=== PATIENT | female | born 1965 | race Caucasian/White ===

== ENCOUNTER 2019-04-07 16:50 | Emergency (ER) | payer MEDICAID ==
[~2019-04-07] VITALS: Ht 177.8 cm; Wt 65.8 kg
--- NOTE | 2019-04-07 17:05 | NUR ---
ERMD at bedside for MSE
[2019-04-07 17:25] LABS: BASOPHILS % (AUTO) 0.9 % (0.0-2.0); EOSINOPHILS # (AUTO) 0.1 K/uL (0.0-0.7); EOSINOPHILS % (AUTO) 1.5 % (0.0-7.0); HEMOGLOBIN 13.9 g/dL (10.9-14.3); LYMPHOCYTES # (AUTO) 1.8 K/uL (20.0-40.0); LYMPHOCYTES % (AUTO) 32.5 % (20.5-51.5); MEAN CORPUSCULAR HEMOGLOBIN 28.4 uug (24.7-32.8); MEAN CORPUSCULAR HGB CONC 33 g/dL (32.3-35.6); MEAN CORPUSCULAR VOLUME 85.4 fL (75.5-95.3); MONOCYTES # (AUTO) 0.5 K/uL (2.0-10.0); MONOCYTES % (AUTO) 8.5 % (0.0-11.0); NEUTROPHILS # (AUTO) 3.1 K/uL (1.8-8.9); NEUTROPHILS % (AUTO) 56.6 % (38.5-71.5); PLATELET COUNT (AUTO) 249 K/uL (179-408); RED BLOOD CELL COUNT(AUTO) 4.91 MIL/uL (3.63-4.92); WHITE BLOOD COUNT (AUTO) 5.5 K/uL (3.8-11.8)
[2019-04-07 17:37] LABS: CREATININE 0.7 mg/dL (0.6-1.3); POTASSIUM 3.8 mmol/L (3.5-5.1)
[2019-04-07 17:49] LABS: BILIRUBIN,DIRECT 0.1 mg/dL (0.0-0.2); BILIRUBIN,TOTAL 0.2 mg/dL (0.2-1.0); TOTAL PROTEIN, SERUM 7.1 g/dL (6.4-8.2)
--- NOTE | 2019-04-07 18:17 | NUR ---
Patient discharged to home in stable conditon. Written and verbal after care instructions given. Patient verbalizes understanding of instructions. Patient ambulated with stable gait.
[2019-04-07 18:21] VITALS: BP 129/91
== END 2019-04-07 18:22 | disposition home or self-care (01) ==
LOC: ER 16:50
DX: J20.9 Acute bronchitis, unspecified (principal); J44.9 Chronic obstructive pulmonary disease, unspecified; F17.200 Nicotine dependence, unspecified, uncomplicated
CPT/HCPCS: 36415; 70030-TC; 71045; 85025; 93005; A4663

== ENCOUNTER 2019-06-24 18:59 | Emergency (ER) | payer MEDICAID ==
[~2019-06-24] VITALS: Ht 177.8 cm; Wt 66.7 kg
[2019-06-24 19:58] LABS: BASOPHILS # (AUTO) 0.1 K/uL (0.0-8.0); BASOPHILS % (AUTO) 0.7 % (0.0-2.0); EOSINOPHILS % (AUTO) 0.5 % (0.0-7.0); HEMATOCRIT 39.9 % (31.2-41.9); HEMOGLOBIN 13.8 g/dL (10.9-14.3); LYMPHOCYTES # (AUTO) 1.5 K/uL (20.0-40.0); LYMPHOCYTES % (AUTO) 17.1 % (20.5-51.5); MEAN CORPUSCULAR HEMOGLOBIN 28.5 uug (24.7-32.8); MEAN CORPUSCULAR HGB CONC 35 g/dL (32.3-35.6); MEAN CORPUSCULAR VOLUME 82.6 fL (75.5-95.3); MONOCYTES # (AUTO) 0.9 K/uL (2.0-10.0); MONOCYTES % (AUTO) 10.3 % (0.0-11.0); NEUTROPHILS # (AUTO) 6.4 K/uL (1.8-8.9); NEUTROPHILS % (AUTO) 71.4 % (38.5-71.5); PLATELET COUNT (AUTO) 242 K/uL (179-408); RED BLOOD CELL COUNT(AUTO) 4.83 MIL/uL (3.63-4.92); WHITE BLOOD COUNT (AUTO) 8.9 K/uL (3.8-11.8)
[2019-06-24] MEDS ORDERED: KETOROLAC TROMETHAMINE 30 MG INJ IVP ONE (20:00)
[2019-06-24 20:02] LABS: *BILIRUBIN,URIN NEGATIVE (NEGATIVE); *BLOOD, URINE 1+ (NEGATIVE); *CLARITY,URINE CLOUDY (CLEAR); *COLOR,URINE YELLOW (YELLOW); *KETONES,URINE NEGATIVE (NEGATIVE); *UROBILINOGEN,URINE 0.2 E.U./dl (NORMAL); LEUKOCYTE ESTERASE ,URINE 2+ (NEGATIVE); NITRITE, URINE NEGATIVE (NEGATIVE); UGLUCOSE NEGATIVE (NEGATIVE)
[2019-06-24 20:12] LABS: BACTERIA,URINE 2+ /HPF (NONE SEEN); WBC,URINE 50-80 /HPF (0-3)
[2019-06-24 20:14] LABS: CREATININE 0.8 mg/dL (0.6-1.3)
[2019-06-24 20:19] LABS: BILIRUBIN,TOTAL 0.5 mg/dL (0.2-1.0); TOTAL PROTEIN, SERUM 7.4 g/dL (6.4-8.2)
[2019-06-24 20:20] LABS: BILIRUBIN,DIRECT 0.1 mg/dL (0.0-0.2)
[2019-06-24] MEDS ORDERED: KETOROLAC TROMETHAMINE 30 MG INJ ONE (20:22)
[2019-06-24] MEDS ORDERED: CEFTRIAXONE 1 G VIAL ONE (20:26)
[2019-06-24] MEDS ORDERED: CEFTRIAXONE 2 G in IV DEXTROSE 5% 100 ML IV ONE (20:30)
--- NOTE | 2019-06-24 20:58 | NUR ---
Patient discharged to home in stable conditon. Written and verbal after care instructions given. Patient verbalizes understanding of instructions.
--- NOTE | 2019-06-24 20:58 | NUR ---
IV removed. Catheter intact and site benign. Pressure and 4x4 gauze applied to site. No bleeding noted.
[2019-06-24 20:59] VITALS: BP 122/77
== END 2019-06-24 21:00 | disposition home or self-care (01) ==
LOC: ER 19:00
DX: N12 Tubulo-interstitial nephritis, not specified as acute or chronic (principal); R30.0 Dysuria
CPT/HCPCS: 36415; 80048; 80076; 81000; 81001; 83605; 83690; 85025; 87040 ×2; 87077; 87086; 87186; 96372; 99283; J0696; J1885; J7060; A4663

== ENCOUNTER 2020-01-21 07:36 | Emergency (ER) | payer MEDICAID ==
[~2020-01-21] VITALS: Ht 177.8 cm; Wt 66.7 kg
--- NOTE | 2020-01-21 07:51 | NUR ---
at bedside to examine patient.
--- NOTE | 2020-01-21 08:23 | NUR ---
dcd instructions and prescription given to pt. who verbalized understanding. pt. left room aaox4. vitals stable steady gait.
== END 2020-01-21 08:24 | disposition home or self-care (01) ==
LOC: ER 07:36
DX: N76.4 Abscess of vulva (principal); J44.9 Chronic obstructive pulmonary disease, unspecified; Z87.01 Personal history of pneumonia (recurrent); S31.4 Open wound of vagina and vulva; W26.8XXS Contact with other sharp object(s), not elsewhere classified, sequela
CPT/HCPCS: A4663

== ENCOUNTER 2020-02-03 08:48 | Emergency (ER) | payer MEDICAID ==
[~2020-02-03] VITALS: Ht 177.8 cm; Wt 68.9 kg
--- NOTE | 2020-02-03 09:15 | NUR ---
Dr Phan at the bedside for MSE.
[2020-02-03 09:37] VITALS: BP 119/77
== END 2020-02-03 09:38 | disposition home or self-care (01) ==
LOC: ER 08:48
DX: K08.89 Other specified disorders of teeth and supporting structures (principal); F41.9 Anxiety disorder, unspecified; J44.9 Chronic obstructive pulmonary disease, unspecified
CPT/HCPCS: A4663

== ENCOUNTER 2020-07-25 01:18 | Emergency (ER) | payer MEDICAID, OTHER ==
[~2020-07-25] VITALS: Ht 177.8 cm; Wt 69.9 kg
--- NOTE | 2020-07-25 01:20 | NUR ---
54 y/o female presents with right sided flank pain. Given a cup for urine sample upon arrival. Hx of UTIs. A&Ox4. No SI/HI. Steady gait. Well kept appearance. No chest pain, no palpitations, no diaphoresis, no chills. Sinus Tachycardia on monitor (low 100s). No SOB, sats >94% on room air. Lungs clear bilaterally. GI/ non-remarkable other than the chief complaint of right sided flank pain + dysuria. No N/V/D.
[2020-07-25 01:28] LABS: *BILIRUBIN,URIN NEGATIVE (NEGATIVE); *BLOOD, URINE TRACE (NEGATIVE); *COLOR,URINE YELLOW (YELLOW); *KETONES,URINE NEGATIVE (NEGATIVE); *UROBILINOGEN,URINE 0.2 E.U./dl (NORMAL); LEUKOCYTE ESTERASE ,URINE NEGATIVE (NEGATIVE); NITRITE, URINE POSITIVE (NEGATIVE); UGLUCOSE NEGATIVE (NEGATIVE)
[2020-07-25 01:29] LABS: *CLARITY,URINE HAZY (CLEAR)
[2020-07-25 01:35] LABS: BACTERIA,URINE MANY /HPF (NONE SEEN); RBC,URINE 0-3 /HPF (0-3); SQUAMOUS EPITHELIAL CELL,UR FEW /HPF (NONE SEEN)
--- NOTE | 2020-07-25 01:36 | NUR ---
Dr. Delgado at bedside for MSE
[2020-07-25 01:43] VITALS: BP 122/81
[2020-07-25] MEDS ORDERED: SULFAMETH/TRIMETH 800/160 MG TABLET PO ONE (01:45)
[2020-07-25] MEDS ORDERED: SULFAMETH/TRIMETH 800/160 MG TABLET ONE (01:47)
--- NOTE | 2020-07-25 01:50 | NUR ---
Patient discharged to home in stable condition. Written and verbal after care instructions given. Patient verbalizes understanding of instructions. Stressed follow up or return to ER for worsening s/s. Belongings with patient. Medication education verbally given. Steady gait. Vital signs stable.
== END 2020-07-25 01:51 | disposition home or self-care (01) ==
LOC: ER 01:20
DX: N39.0 Urinary tract infection, site not specified (principal); J44.9 Chronic obstructive pulmonary disease, unspecified; Z87.01 Personal history of pneumonia (recurrent)
CPT/HCPCS: 87077; 87086; A4663

== ENCOUNTER 2020-09-24 05:42 | Emergency (ER) | payer OTHER ==
[~2020-09-24] VITALS: Ht 177.8 cm; Wt 68.9 kg
--- NOTE | 2020-09-24 07:18 | NUR ---
Recieved patient in shift report, X-ray tech note at bedside
[2020-09-24] MEDS ORDERED: KETOROLAC TROMETHAMINE 15 MG INJ IM ONE (08:00)
[2020-09-24] MEDS ORDERED: KETOROLAC TROMETHAMINE 15 MG INJ ONE (08:00)
[2020-09-24] MEDS ORDERED: IBUP-1955 PO (08:02)
--- NOTE | 2020-09-24 08:36 | NUR ---
Patient discharged to home in stable condition. KELVIN wrap applied to left ankle, patient given crutches and instructed on the proper use of crutches. Patient able to ambulate to car, no signs of acute distress noted. Written and verbal after care instructions given. Patient verbalizes understanding of instructions. Stressed follow up or return to ER for worsening s/s.
[2020-09-24 08:39] VITALS: BP 122/76
== END 2020-09-24 08:40 | disposition home or self-care (01) ==
LOC: ER 05:52
DX: S93.402A Sprain of unspecified ligament of left ankle, initial encounter (principal); W18.49XA Other slipping, tripping and stumbling without falling, initial encounter; Y92.89 Other specified places as the place of occurrence of the external cause; J44.9 Chronic obstructive pulmonary disease, unspecified; F17.200 Nicotine dependence, unspecified, uncomplicated
CPT/HCPCS: 73610; 73630; 96372; 99284; J1885; A4663

== ENCOUNTER 2021-09-06 00:31 | Emergency (ER) | payer OTHER ==
[~2021-09-06] VITALS: Ht 177.8 cm; Wt 64.4 kg
[~2021-09-06 00:31] MED LIST: IBUP-1955 PO
--- NOTE | 2021-09-06 00:46 | NUR ---
pt in room 4a says has sore throat for 2 days and has difficulty swallowing.
--- NOTE | 2021-09-06 01:06 | NUR ---
Dr. Soria in room for RITA.
[2021-09-06] MEDS ORDERED: OXYCODONE/APAP 5-325 MG TABLET ONE (01:24)
[2021-09-06] MEDS ORDERED: OXYCODONE/APAP 5-325 MG TABLET PO ONE (01:30)
[2021-09-06 01:37] LABS: HEMATOCRIT 39.5 % (31.2-41.9); MEAN CORPUSCULAR HEMOGLOBIN 28.7 uug (24.7-32.8); MEAN CORPUSCULAR VOLUME 83.1 fL (75.5-95.3); PLATELET COUNT (AUTO) 240 K/uL (179-408)
[2021-09-06 01:40] LABS: MAGNESIUM 1.9 mg/dL (1.8-2.4)
[2021-09-06 02:05] LABS: THYROID STIMULATING HORMONE 0.928 mIU/mL (0.358-3.740)
[2021-09-06] MEDS ORDERED: FENTANYL CITRATE 100 MCG/2 ML AMPUL IV ONE (02:30)
[2021-09-06] MEDS ORDERED: PROPOFOL 200 MG/20 ML BOTTLE IV ONE ×2 (02:30→03:00)
[2021-09-06] MEDS ORDERED: FENTANYL CITRATE 100 MCG/2 ML AMPUL ONE (02:40)
[2021-09-06] MEDS ORDERED: PROPOFOL 100 ML ONE (02:40)
[2021-09-06] MEDS ORDERED: OXYC-128 PO (03:14)
--- NOTE | 2021-09-06 03:18 | NUR ---
DR. Soria at bedside speaking with the pt.
[2021-09-06 03:48] VITALS: BP 132/85
--- NOTE | 2021-09-06 03:48 | NUR ---
Patient discharged to home in stable condition. Written and verbal after care instructions given. Patient verbalizes understanding of instructions. Stressed follow up or return to ER for worsening s/s.
== END 2021-09-06 03:48 | disposition home or self-care (01) ==
LOC: ER 00:36
DX: R13.10 Dysphagia, unspecified (principal); J44.9 Chronic obstructive pulmonary disease, unspecified; F17.210 Nicotine dependence, cigarettes, uncomplicated
CPT/HCPCS: 31525; 36415; 83735; 84443; 85025; 96374; 99285; J3010; J7040; A4663; J3490

== ENCOUNTER 2021-11-20 21:17 | Emergency (ER) | payer OTHER ==
[~2021-11-20] VITALS: Ht 177.8 cm; Wt 67.1 kg
[~2021-11-20 21:17] MED LIST changes: +OXYC-128 PO
[2021-11-20] MEDS ORDERED: ACETAMINOPHEN ES 500 MG TABLET PO ONE (22:30)
[2021-11-20] MEDS ORDERED: ACETAMINOPHEN ES 500 MG TABLET ONE (22:34)
--- NOTE | 2021-11-20 22:47 | NUR ---
Tylenol administered as ordered. PT is shivering. Pt offered warm blanket on request.will repeat temp in 1 hour.
[2021-11-20] MEDS ORDERED: IV NORMAL SALINE 1000 ML BAG IV ONE (23:45)
[2021-11-21 00:21] LABS: HEMATOCRIT 38.5 % (31.2-41.9); MEAN CORPUSCULAR HEMOGLOBIN 28.7 uug (24.7-32.8); PLATELET COUNT (AUTO) 207 K/uL (179-408)
[2021-11-21 00:24] LABS: CARBON DIOXIDE 28 mmol/L (21-32); CHLORIDE 99 mmol/L (98-107); CREATININE 0.8 mg/dL (0.6-1.3); GLUCOSE 124 mg/dL (74-106); POTASSIUM 3.9 mmol/L (3.5-5.1); UREA NITROGEN, BLOOD 7 mg/dL (7-18)
[2021-11-21 00:29] LABS: *BILIRUBIN,URIN NEGATIVE (NEGATIVE); *BLOOD, URINE 1+ (NEGATIVE); *COLOR,URINE YELLOW (YELLOW); *KETONES,URINE NEGATIVE (NEGATIVE); *UROBILINOGEN,URINE 0.2 E.U./dl (NORMAL); LEUKOCYTE ESTERASE ,URINE 1+ (NEGATIVE); NITRITE, URINE NEGATIVE (NEGATIVE); UGLUCOSE NEGATIVE (NEGATIVE)
[2021-11-21 00:34] LABS: *CLARITY,URINE HAZY (CLEAR)
[2021-11-21 00:35] LABS: ALANINE AMINOTRANSFERASE 25 U/L (14-59); ALKALINE PHOSPHATASE 100 U/L (50-136); ASPARTATE AMINOTRANSFERASE 31 U/L (15-37); BILIRUBIN,DIRECT 0.1 mg/dL (0.0-0.2); BILIRUBIN,TOTAL 0.5 mg/dL (0.2-1.0); LIPASE 66 U/L (73-393)
[2021-11-21 00:38] LABS: BACTERIA,URINE MANY /HPF (NONE SEEN); SQUAMOUS EPITHELIAL CELL,UR MODERATE /HPF (NONE SEEN); WBC,URINE 20-50 /HPF (0-3)
--- NOTE | 2021-11-21 01:06 | NUR ---
temp repeated and is 98.2.
[2021-11-21] MEDS ORDERED: CEFTRIAXONE 1 G in IV DEXTROSE 5% 50 ML IV ONE (01:45)
[2021-11-21] MEDS ORDERED: NITR100C11 PO (01:49)
[2021-11-21] MEDS ORDERED: CEPH500C2 PO (01:49)
[2021-11-21] MEDS ORDERED: CEFTRIAXONE 1 G VIAL ONE (01:51)
[2021-11-21 03:01] VITALS: BP 151/93
== END 2021-11-21 02:37 | disposition home or self-care (01) ==
LOC: ER 21:17
DX: N10 Acute pyelonephritis (principal); Z87.440 Personal history of urinary (tract) infections; E87.1 Hypo-osmolality and hyponatremia; Z20.822 Contact with and (suspected) exposure to COVID-19; F17.210 Nicotine dependence, cigarettes, uncomplicated; R94.31 Abnormal electrocardiogram [ECG] [EKG]; Z87.01 Personal history of pneumonia (recurrent)
CPT/HCPCS: 36415; 71045; 83605; 83690; 84484; 85025; 87040; 87077; 87086; 87400; 93005; A9150; J0696

== ENCOUNTER 2022-10-06 05:11 | Emergency (ER) | payer OTHER ==
[~2022-10-06] VITALS: Ht 175.3 cm; Wt 68.9 kg
[~2022-10-06 05:11] MED LIST changes: +CEPH500C2 PO; +NITR100C11 PO
--- NOTE | 2022-10-06 05:36 | NUR ---
Dr. Soria evaluating patient at bedside. MSE in progress.
[2022-10-06] MEDS ORDERED: ONDANSETRON HCL 4 MG TABLET PO ONE (05:45)
[2022-10-06] MEDS ORDERED: HYDROMORPHONE 1 MG/1 ML DISP.SYRIN IM ONE (05:45)
[2022-10-06] MEDS ORDERED: KETOROLAC TROMETHAMINE 60 MG INJ IM ONE ×2 (05:45→05:49)
--- NOTE | 2022-10-06 05:45 | NUR ---
Patient AOx4, clear speech, ambulating in the room indepedently, steady gait.
[2022-10-06] MEDS ORDERED: HYDROMORPHONE 2 MG/1 ML DISP.SYRIN ONE (05:50)
[2022-10-06] MEDS ORDERED: HYDROMORPHONE 1 MG/1 ML DISP.SYRIN ONE (05:50)
[2022-10-06] MEDS ORDERED: ONDANSETRON HCL 4 MG TABLET ONE (05:51)
[2022-10-06] MEDS ORDERED: HYDR-3980 PO (06:11)
--- NOTE | 2022-10-06 06:11 | NUR ---
Patient taken to CT via wheelchair accompanied by
--- NOTE | 2022-10-06 06:38 | NUR ---
Patient resting comfortably in bed, eyes closed. No signs of distress noted.
--- NOTE | 2022-10-06 07:07 | NUR ---
Report given to Traci JOSHUA.
--- NOTE | 2022-10-06 07:08 | NUR ---
Patient is resting comfortably in bed with eyes closed,NAD noted. Will continue to monitor.
--- NOTE | 2022-10-06 08:58 | NUR ---
DR Wilkerson provided result to pt, and discussed plan of care.
[2022-10-06 11:20] VITALS: BP 133/90
== END 2022-10-06 11:35 | disposition home or self-care (01) ==
LOC: ER 05:18
DX: S16.1XXA Strain of muscle, fascia and tendon at neck level, initial encounter (principal); S46.912A Strain of unspecified muscle, fascia and tendon at shoulder and upper arm level, left arm, initial encounter; M85.80 Other specified disorders of bone density and structure, unspecified site; M48.02 Spinal stenosis, cervical region; F17.210 Nicotine dependence, cigarettes, uncomplicated; Z79.1 Long term (current) use of non-steroidal anti-inflammatories (NSAID); Z79.899 Other long term (current) drug therapy; W18.39XA Other fall on same level, initial encounter; Y93.89 Activity, other specified; Y92.89 Other specified places as the place of occurrence of the external cause; Y99.8 Other external cause status
CPT/HCPCS: 99285; 72125; 73130; 96372 ×2; J1885; J1170 ×2; A4663; Q0162